=== PATIENT | male | born 2000 | race Caucasian/White ===

== ENCOUNTER 2023-10-20 06:31 | Day surgery (SDC) | payer BC, SELFPAY ==
[2023-10-20] VITALS (8 sets, daily range): BP systolic 108–138; BP diastolic 62–86; BMI 32.1
[2023-10-20] MEDS: CELEBREX 200 MG PO (08:11)
[2023-10-20] MEDS: TYLENOL 1000 MG PO (08:11)
[2023-10-20] MEDS: NORMOSOL-R 1000 IV (08:12)
[2023-10-20] MEDS: ZOFRAN 4 MG IV (10:41)
== END 2023-10-20 11:42 | disposition home or self-care (01) ==
LOC: SDS 06:31
PROVIDERS: ATTENDING PHYSICIAN Specialist
DX: M23.41 Loose body in knee, right knee (principal); M22.41 Chondromalacia patellae, right knee
CPT/HCPCS: 29874